=== PATIENT | female | born 1995 | race Caucasian/White ===

== ENCOUNTER 2017-05-14 18:54 | Emergency (ER) | payer BC ==
[2017-05-14 19:23] LABS: ABS Basophils 0 10^3/ul (0-0.2); ABS Eosinophils 0.2 10^3/ul (0-0.6); ABS Monocytes 0.6 10^3/ul (0-0.8); ABS Neutrophils 5.3 10^3/ul (1.5-7.7); ABS Nucleated RBC 0.01 10^3/ul; Eosinophil % 1.8 % (0-6); Hematocrit 41 % (35-47); Hemoglobin 13.6 g/dl (12.0-16.0); Lymphocyte % 33.1 % (25-47); Mean Corpuscular HGB Conc 34 g/dl (31-36); Mean Corpuscular Hemoglobin 28 pg (27-31); Mean Corpuscular Volume 83 fL (80-97); Mean Platelet Volume 8 um3 (7.4-10.4); Nucleated Red Blood Cells % 0.1; Platelet Count 235 10^3/ul (150-450); Red Cell Distribution Width 14 % (10.5-15)
[2017-05-14 19:37] LABS: EGFR Non-African American 69.5 (>60)
[2017-05-14 19:38] LABS: Urine Appearance Cloudy; Urine Blood Negative (Negative); Urine Color Yellow; Urine Ketones Negative (Negative); Urine Protein Negative (Negative); Urine Specific Gravity 1.025 (1.010-1.030); Urine Urobilinogen Negative (Negative)
[2017-05-14] MEDS ORDERED: Metoclopramide IV* 5 MG/ML 2 ML VIAL IV SLOW PU ONE (22:05)
[2017-05-14] MEDS ORDERED: NS 0.9% 1000 ML* 1,000 ML IV ONE (22:05)
[2017-05-14] MEDS ORDERED: Iohexol 300* (CONTRAST) 10 ML SDV IV ONE (22:55)
--- NOTE | 2017-05-15 02:35 | ED ---
Alena Lundberg Rebecca, scribed for Joaquim Marks MD on 05/14/17 at 2156 . Abdominal Pain/Female - HPI Summary HPI Summary: Pt is a 21 y/o F who presents to ED c/o abdominal pain. Pain began suddenly last night at 2300 and was initially diffuse, though upon waking up, the pain was on the R side. Pain has gradually moved down into the RLQ throughout the day and is currently moderate, ranked 6/10. Sx aggravated and alleviated by nothing. Additionally c/o N/V secondary to pain and decreased appetite. Reports vomiting this afternoon after eating soup. LNMP 2 weeks ago. - History of Current Complaint Chief Complaint: EDAbdPain Stated Complaint: ABD PAIN Time Seen by Provider: 05/14/17 21:53 Hx Obtained From: Patient Hx Last Menstrual Period: ROSAMARIA Onset/Duration: Sudden Onset, Lasting Days - Yesterday at 2300, Still Present Severity Currently: Moderate Pain Intensity: 6 Pain Scale Used: 0-10 Numeric Location: Discrete At: RLQ Radiates: No Character: Other: - Ache Aggravating Factor(s): Nothing Alleviating Factor(s): Nothing Associated Signs and Symptoms: Positive: Decreased Appetite, Nausea, Vomiting Allergies/Adverse Reactions: Allergies Allergy/AdvReac Type Severity Reaction Status Date / Time Amoxicillin [From Augmentin] Allergy Intermediate Rash Verified 05/14/17 19:02 Azithromycin [From Zithromax] Allergy Intermediate Rash Verified 05/14/17 19:02 Clavulanic Acid Allergy Intermediate Rash Verified 05/14/17 19:02 [From Augmentin] PMH/Surg Hx/FS Hx/Imm Hx Respiratory History: Denies: Hx Chronic Obstructive Pulmonary Disease (COPD) Musculoskeletal History: Denies: Hx Rheumatoid Arthritis, Hx Osteoporosis Sensory History: Denies: Hx Deafness Infectious Disease History: No Infectious Disease History: Denies: History Other Infectious Disease, Traveled Outside the [place] in Last 30 Days - Family History Known Family History: Positive: Diabetes - Social History Alcohol Use: Rare Substance Use Type: Reports: None Smoking Status (MU): Never Smoked Tobacco Review of Systems Negative: Fever Positive: Abdominal Pain, Vomiting, Nausea, Other - Decreased appetite All Other Systems Reviewed And Are Negative: Yes Physical Exam - Summary Physical Exam Summary: VITAL SIGNS: Reviewed. GENERAL: ~Patient is a well-developed and nourished female who is lying comfortable in the stretcher. Patient is not in any acute respiratory distress. HEAD AND FACE: No signs of trauma. No ecchymosis, hematomas or skull depressions. No sinus tenderness. EYES: PERRLA, EOMI x 2, No injected conjunctiva, no nystagmus. EARS: Hearing grossly intact. Ear canals and tympanic membranes are within normal limits. MOUTH: Oropharynx within normal limits. NECK: Supple, trachea is midline, no adenopathy, no JVD, no carotid bruit, no c- spine tenderness, neck with full ROM. CHEST: Symmetric, no tenderness at palpation LUNGS: Clear to auscultation bilaterally. No wheezing or crackles. CVS: Regular rate and rhythm, S1 and S2 present, no murmurs or gallops appreciated. ABDOMEN: Soft with RLQ tenderness. No signs of distention. Rebound present with no guarding, and no masses palpated. Bowel sounds are normal. EXTREMITIES: FROM in all major joints, no edema, no cyanosis or clubbing. NEURO: Alert and oriented x 3. No acute neurological deficits. Speech is normal and follows commands. SKIN: Dry and warm Triage Information Reviewed: Yes Vital Signs On Initial Exam: Initial Vitals Temp Pulse Resp BP Pulse Ox 98.1 F 85 16 130/71 97 05/14/17 19:00 05/14/17 19:00 05/14/17 19:00 05/14/17 19:00 05/14/17 19:00 Vital Signs Reviewed: Yes Diagnostics - Vital Signs Vital Signs Temp Pulse Resp BP Pulse Ox 05/14/17 19:00 98.1 F 85 16 130/71 97 - Laboratory Lab Results: Lab Results 05/14/17 05/14/17 05/14/17 Range/Units 19:05 19:14 19:14 WBC 9.0 (3.5-10.8) 10^3/ul RBC 4.90 (4.0-5.4) 10^6/ul Hgb 13.6 (12.0-16.0) g/dl Hct 41 (35-47) % MCV 83 (80-97) fL MCH 28 (27-31) pg MCHC 34 (31-36) g/dl RDW 14 (10.5-15) % Plt Count 235 (150-450) 10^3/ul MPV 8 (7.4-10.4) um3 Neut % (Auto) 58.1 (38-83) % Lymph % (Auto) 33.1 (25-47) % Atkinson % (Auto) 6.5 (1-9) % Eos % (Auto) 1.8 (0-6) % Baso % (Auto) 0.5 (0-2) % Absolute Neuts (auto) 5.3 (1.5-7.7) 10^3/ul Absolute Lymphs (auto) 3.0 (1.0-4.8) 10^3/ul Absolute Monos (auto) 0.6 (0-0.8) 10^3/ul Absolute Eos (auto) 0.2 (0-0.6) 10^3/ul Absolute Basos (auto) 0 (0-0.2) 10^3/ul Absolute Nucleated RBC 0.01 10^3/ul Nucleated RBC % 0.1 Sodium 140 (133-145) mmol/L Potassium 3.8 (3.5-5.0) mmol/L Chloride 105 (101-111) mmol/L Carbon Dioxide 24 (22-32) mmol/L Anion Gap 11 (2-11) mmol/L BUN 14 (6-24) mg/dL Creatinine 0.99 H (0.51-0.95) mg/dL Est GFR ( Amer) 89.4 (>60) Est GFR (Non-Af Amer) 69.5 (>60) BUN/Creatinine Ratio 14.1 (8-20) Glucose 95 (70-100) mg/dL Lactic Acid (0.5-2.0) mmol/L Calcium 9.4 (8.6-10.3) mg/dL Total Bilirubin 0.40 (0.2-1.0) mg/dL AST 16 (13-39) U/L ALT 13 (7-52) U/L Alkaline Phosphatase 62 (34-104) U/L C-Reactive Protein 11.56 H (< 5.00) mg/L Total Protein 7.2 (6.4-8.9) g/dL Albumin 4.2 (3.2-5.2) g/dL Globulin 3.0 (2-4) g/dL Albumin/Globulin Ratio 1.4 (1-3) Lipase 15 (11.0-82.0) U/L Beta HCG, Quant < 0.60 mIU/mL Urine Color Yellow Urine Appearance Cloudy Urine pH 6.0 (5-9) Ur Specific Sharon 1.025 (1.010-1.030) Urine Protein Negative (Negative) Urine Ketones Negative (Negative) Urine Blood Negative (Negative) Urine Nitrate Negative (Negative) Urine Bilirubin Negative (Negative) Urine Urobilinogen Negative (Negative) Ur Leukocyte Esterase 1+ H (Negative) Urine WBC (Auto) Trace(0-5/hpf) (Absent) Urine RBC (Auto) Trace(0-2/hpf) (Absent) Ur Squamous Epith Cells Present H (Absent) Amorphous Crystals Present H (Absent) Urine Bacteria Absent (Absent) Urine Glucose Negative (Negative) 05/14/17 Range/Units 19:14 WBC (3.5-10.8) 10^3/ul RBC (4.0-5.4) 10^6/ul Hgb (12.0-16.0) g/dl Hct (35-47) % MCV (80-97) fL MCH (27-31) pg MCHC (31-36) g/dl RDW (10.5-15) % Plt Count (150-450) 10^3/ul MPV (7.4-10.4) um3 Neut % (Auto) (38-83) % Lymph % (Auto) (25-47) % Atkinson % (Auto) (1-9) % Eos % (Auto) (0-6) % Baso % (Auto) (0-2) % Absolute Neuts (auto) (1.5-7.7) 10^3/ul Absolute Lymphs (auto) (1.0-4.8) 10^3/ul Absolute Monos (auto) (0-0.8) 10^3/ul Absolute Eos (auto) (0-0.6) 10^3/ul Absolute Basos (auto) (0-0.2) 10^3/ul Absolute Nucleated RBC 10^3/ul Nucleated RBC % Sodium (133-145) mmol/L Potassium (3.5-5.0) mmol/L Chloride (101-111) mmol/L Carbon Dioxide (22-32) mmol/L Anion Gap (2-11) mmol/L BUN (6-24) mg/dL Creatinine (0.51-0.95) mg/dL Est GFR ( Amer) (>60) Est GFR (Non-Af Amer) (>60) BUN/Creatinine Ratio (8-20) Glucose (70-100) mg/dL Lactic Acid 0.6 (0.5-2.0) mmol/L Calcium (8.6-10.3) mg/dL Total Bilirubin (0.2-1.0) mg/dL AST (13-39) U/L ALT (7-52) U/L Alkaline Phosphatase (34-104) U/L C-Reactive Protein (< 5.00) mg/L Total Protein (6.4-8.9) g/dL Albumin (3.2-5.2) g/dL Globulin (2-4) g/dL Albumin/Globulin Ratio (1-3) Lipase (11.0-82.0) U/L Beta HCG, Quant mIU/mL Urine Color Urine Appearance Urine pH (5-9) Ur Specific Sharon (1.010-1.030) Urine Protein (Negative) Urine Ketones (Negative) Urine Blood (Negative) Urine Nitrate (Negative) Urine Bilirubin (Negative) Urine Urobilinogen (Negative) Ur Leukocyte Esterase (Negative) Urine WBC (Auto) (Absent) Urine RBC (Auto) (Absent) Ur Squamous Epith Cells (Absent) Amorphous Crystals (Absent) Urine Bacteria (Absent) Urine Glucose (Negative) Result Diagrams: 05/14/17 19:14 05/14/17 19:14 Lab Statement: Any lab studies that have been ordered have been reviewed, and results considered in the medical decision making process. - CT CT Abd/Pel CT Interpretation Completed By: Radiologist - Negative for appendicitis. Normal appendix visualized. No bowel obstruction, free air, or free fluid. Negative for diverticulitis or colitis. Normal kidneys, urinary tracts, and urinary bladder. Normal liver. Normal spleen. Normal pancreas. Normal adrenal glands. No obvious gallbladder abnormalities. There is a 2.[address] Marks reviewed radiology report. Re-Evaluation - Re-Evaluation First Eval Re-Evaluation Time: 02:32 Change: Improved Comment: Discussed CT results, pt's sx have improved. Abdominal Pain Fem Course/Dx - Course Course Of Treatment: Pt is a 21 y/o F who presents to ED c/o RLQ abdominal pain since last night at 2300, currently moderate, ranked 6/10. Additionally c/o N/V secondary to pain and decreased appetite. LNMP [address] Abd/Pel reveals an ovarian cyst. In the ED course, pt received Reglan and fluids. Pt will be D/ C to home with Dx of ovarian cyst with Rx for Motrin. She understands and agrees. Allergies noted. Pt medications reviewed. - Diagnoses Provider Diagnoses: Ovarian cyst Discharge - Discharge Plan Condition: Stable Disposition: HOME Patient Education Materials: Ovarian Cyst (ED) Referrals: Rachel Chun NP [Primary Care Provider] - Additional Instructions: RETURN TO EMERGENCY DEPARTMENT FOR ANY NEW OR WORSENING SYMPTOMS The documentation as recorded by the Alena remy Rebecca accurately reflects the service I personally performed and the decisions made by , Joaquim Marks MD.
[2017-05-15 02:58] VITALS: BP 112/68
--- NOTE | 2017-05-15 07:38 | RAD ---
CLINICAL HISTORY: Abdominal pain COMPARISON: January 11, 2014 TECHNIQUE: Multiple contiguous axial CT scans were obtained of the abdomen and pelvis after the administration of intravenous contrast. Coronal and sagittal multiplanar reformations are submitted for review. Oral contrast was administered. Delayed images were obtained through the abdomen and pelvis. FINDINGS: LUNG BASES: The lung bases are clear. LIVER: The liver is normal in shape, size, contour, and attenuation. BILE DUCTS: There is no intrahepatic or extrahepatic biliary dilatation. GALLBLADDER: The gallbladder is normal, without pericholecystic inflammatory change. PANCREAS: The pancreas is normal, without mass or ductal dilatation. SPLEEN: Normal in size and appearance. UPPER GI TRACT: Evaluation of the gastrointestinal tract is limited by incomplete gastric distention. The upper GI tract is unremarkable. SMALL BOWEL AND MESENTERY: The small bowel is normal in contour, course, and caliber. There is no obstruction or dilatation. COLON: The colon is normal in contour, course, caliber. There is no pericolonic inflammatory change. There is a tubular, vermiform, hollow viscus that is blind ending, and originates from the cecum, consistent with a normal appendix. There is no periappendiceal inflammatory change. This is best seen on coronal images 39 through 43 ADRENALS: Normal bilaterally. KIDNEYS: The kidneys are normal in shape, size, contour, and axis. There is no hydronephrosis or nephrolithiasis. BLADDER: The bladder is smooth in contour. PELVIC ORGANS: There is a 2.2 cm right ovarian cyst. The pelvic organs are normal for technique and patient age. AORTA: The aorta is normal. IVC: Unremarkable LYMPH NODES: There is no lymphadenopathy by size criteria. ABDOMINAL WALL: There is no evidence for abdominal wall hernia. BONES AND SOFT TISSUES: Mild degenerative changes noted at L4-L5 OTHER: None IMPRESSION: RIGHT OVARIAN CYST. NO ACUTE CT PATHOLOGY OF THE VISUALIZED ABDOMEN OR PELVIS.
== END 2017-05-15 02:56 | disposition home or self-care (01) ==
LOC: ED 18:54
DX: N83.201 Unspecified ovarian cyst, right side (principal); R11.2 Nausea with vomiting, unspecified; Z32.02 Encounter for pregnancy test, result negative; Z88.1 Allergy status to other antibiotic agents
CPT/HCPCS: 36415; 74177; 80053; 81003; 81015; 83605; 83690; 84702; 85025; 86140; 87086; 96374; 99283; J2765; Q9967